=== PATIENT | male | born 1935 | race Caucasian/White ===

== ENCOUNTER 2017-09-09 09:32 | Inpatient (IN) | payer OTHER ==
[2017-09-08 09:50] LABS: BASOPHILS % 0.4 % (0.0-1.0); EOSINOPHILS # (AUTO) 0.2 (0.0-0.4); HEMATOCRIT 38.7 % (38.2-49.6); HEMOGLOBIN 13.5 g/dL (14.0-18.0); LYMPHOCYTES # (AUTO) 1.5 (1.0-3.2); LYMPHOCYTES % 15.5 % (18.0-39.1); MEAN CORPUSCULAR HEMOGLOBIN 38.6 pg (28-32); MEAN CORPUSCULAR HGB CONC 34.9 g/dL (31-35); MEAN CORPUSCULAR VOLUME 110.6 fL (81-99); MONOCYTES # (AUTO) 1.3 (0.2-0.8); MONOCYTES % 13.4 % (4.4-11.3); NEUTROPHILS # (AUTO) 6.5 (2.1-6.9); NEUTROPHILS % 68.6 % (38.7-80.0); PLATELET COUNT 141 x10e3/uL (140-360); RED CELL DISTRIBUTION WIDTH 12.2 % (11.7-14.4)
--- NOTE | 2017-09-08 09:57 | Diagnostic Imaging Report ---
PROCEDURE:CHEST 2 VIEWS TECHNIQUE:PA and lateral chest totaling 3 radiographs INDICATION:Preoperative evaluation for knee surgery COMPARISON:Patients [facility], [place], , CHEST 2 VIEWS, 08/04/2015, 18:59. FINDINGS: The mild basilar interstitial scar predominant at the right lower lobe. Lungs otherwise clear and symmetrically inflated. No pleural effusions. Normal heart size. Mild aortic arch calcification. Normal pulmonary vasculature. Intact skeleton. CONCLUSION: No acute abnormality interval change from July 2015. Dictated by: Ferdinand Quispe M.D. on 09/08/2017 at 9:58 Electronically approved by: Ferdinand Quispe M.D. on 09/08/2017 at 9:58
[~2017-09-09] VITALS: Ht 175.3 cm; Wt 79.8 kg
[~2017-09-09 09:32] MED LIST: ASPIR-LOW81 MG PO; BACITRACIN 50,000 UNIT VIAL ONE; DOCUSATE SODIU100 MG PO; FAMOTIDINE20 MG PO; GABAPENTIN300 MG PO; ISOSORBIDE MONO30 MG PO; MECLIZINE HCL25 MG PO; METOPROLOL TART25 MG PO; MOBIC7.5 MG PO; MUPIROCIN 2% OINT 22 GM TUBE ONE; NIFEDIPINE ER30 M1 PO; PLAVIX75 MG PO; PROZAC20 MG PO; SIMVASTATIN80 MG PO; SUCRALFATE1 GM PO; TRANEXAMIC ACID 1,000 MG/10 ML ML ONE; TRAZODONE HCL100 MG PO; VALACYCLOVIR1000 MG PO
--- OUTSIDE RECORDS SUMMARY | 2017-09-09 09:33 | XMS REPORT ---
Author Author [facility] Address Unknown Phone Unavailable Care Team Providers Care Ware Server Name Role Phone ROOSEVELT SAN Unavailable Unavailable Problems This patient has no known problems. Allergies, Adverse Reactions, Alerts This patient has no known allergies or adverse reactions. Medications This patient has no known medications. Results Test Description Test Time Test Comments Text Results Atomic Results Result Comments CHEST 2 VIEWS [facility] [address] [place], [place] [address] Patient Name: DUTCH THACKER JR MR #: [id number] : 1935 Age/Sex: 82/M Req #: [id number] Adm Physician: Ordered by: ROOSEVELT SAN MD Report #: [id number] Location: OR Room/Bed: Procedure: [id number] DX/CHEST 2 VIEWS Exam Date: 09/08/17 Exam Time: 0920 REPORT STATUS: Signed PROCEDURE: CHEST 2 VIEWS TECHNIQUE: PA and lateral chest totaling 3 radiographs INDICATION: Preoperative evaluation for knee surgery COMPARISON: [facility], DX, CHEST 2 VIEWS, 08/04/2015, 18:59. FINDINGS: The mild basilar interstitial scar predominant at the right lower lobe. Lungs otherwise clear and symmetrically inflated. No pleural effusions. Normal heart size. Mild aortic arch calcification. Normal pulmonary vasculature. Intact skeleton. CONCLUSION: No acute abnormality interval change from July 2015. Dictated by: Jane Quispe M.D. on 09/08/2017 at 9:58 Electronically approved by: Jane Quispe M.D. on 09/08/2017 at 9:58 Dictated By: JANE QUISPE MD 7 Transcribed By: BECKIE on 09/08/17957 COPY TO: ROOSEVELT SAN MD
[2017-09-09] MEDS: SODIUM CHLORIDE 0.9% 1000ML 1,000 ML IV SCH ×2 (10:14→22:16)
[2017-09-09] MEDS ORDERED: HYDROCODONE/APAP 5MG-325MG TAB PO PRN (10:15)
[2017-09-09] MEDS ORDERED: ONDANSETRON HCL INJ 2 MG/ML VIAL IV PRN (10:15)
[2017-09-09] MEDS ORDERED: ACETAMINOPHEN 650 MG SUPP PR PRN (10:15)
[2017-09-09] MEDS ORDERED: ZOLPIDEM TARTRATE 5 MG TAB PO PRN (10:15)
[2017-09-09] MEDS ORDERED: PROMETHAZINE HCL (IM) 25 MG/ML VIAL INJ PRN (10:15)
[2017-09-09] MEDS ORDERED: DIPHENHYDRAMINE HCL INJ 50 MG/ML VIAL IM/IV PRN (10:15)
[2017-09-09] MEDS ORDERED: FENTANYL CITRATE/PF 100MCG/2 ML INJ ONE ×2 (11:21→18:18)
[2017-09-09] MEDS: ACETAMINOPHEN 1000 MG/100 ML IV SCH ×2 (12:00→16:48)
[2017-09-09] MEDS ORDERED: MORPHINE SULFATE 2 MG/ML SYR ONE (13:01)
[2017-09-09 13:25] VITALS: BP 99/56
--- NOTE | 2017-09-09 13:31 | Operative Report ---
DATE OF PROCEDURE: September 09, 2017 GENERAL EDUCATION INSTRUCTOR: Zackary Arreola PA-C The patient was brought to the operating room for induction of anesthesia. Throughout this case, my PA's assistance was necessary for retraction of soft tissue and positioning of the extremity. This allows for efficient and technically successful execution of the operation and is considered medically necessary. PREOPERATIVE DIAGNOSIS: Osteoarthritis right knee. POSTOPERATIVE DIAGNOSIS: Osteoarthritis right knee. PROCEDURE: Right total knee arthroplasty. INDICATIONS: The patient is an 82-year-old gentleman who has severe arthritic changes in his right knee. He has failed conservative management. He would like to proceed with a right total knee replacement. The risks and benefits have been discussed. He has been through extensive preoperative medical clearance. The recovery has been explained. He states he understands and wishes to proceed. DESCRIPTION OF PROCEDURE: The patient was brought to the operating room and placed under general anesthetic. He received a regional block, prophylactic antibiotics and tranexamic acid in the holding area. His right lower extremity was prepped and draped in a sterile manner. A preoperative time out was performed. The extremity was exsanguinated, and a proximal tourniquet was inflated to 300 mmHg. An anterior approach with a medial parapatellar arthrotomy was performed. Clear synovial fluid was removed from the joint. Soft-tissue releases were performed to bring the knee up into flexion with the patella everted. Severe loss of articular cartilage was noted. 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 Marginal osteophytes and meniscal remnants were removed. An extramedullary cutting guide was used to resect the proximal tibia. The tibial baseplate was a size number 7. The central fin punch was impacted. Throughout the case, a [employer] posterior stabilized knee system was used. Attention was then directed towards the distal femur. An intramedullary cutting guide was used to resect the distal femur in 6 degrees of valgus and rotation referenced off of a combination of landmarks including Perry line, the epicondylar axis and the posterior condyles. 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 The femoral component was also a size number 7. The anterior and posterior cuts were made. The notch cut was made. A trial reduction was performed. A 9 mm posterior stabilized implant provided optimal soft-tissue balancing in flexion and extension. The patella was resurfaced with a 35 mm x 9 mm patellar button. The thickness was checked before and after and was right around 24 mm. Patellar tracking was noted to be concentric. The trial implants were removed. The knee was thoroughly irrigated with a Pulsavac. A 100 mL premixed pericapsular ABELARDO injection was placed into the soft tissue. The components were cemented into place using a single mix of Palacos cement pre-loaded with antibiotics. Care was taken to remove extravasated cement. The wound was further irrigated with a shower-tip pulsatile lavage while the cement cured. The arthrotomy was then closed with interrupted number 1 Ethibond. The knee was put through flexion and extension to ensure a secure closure. The skin was closed with subcuticular Vicryl and adilson. A sterile bandage was applied. He was extubated and transported to the recovery room in stable condition. The blood loss was minimal, and all needle and sponge counts were correct. Job#: [id number]
--- NOTE | 2017-09-09 13:36 | Diagnostic Imaging Report ---
PROCEDURE: X-RAY RIGHT KNEE, ONE OR TWO VIEWS COMPARISON: DX, KNEE RIGHT THREE VIEWS, 05/26/2015, 13:02. INDICATIONS:POST OP KNEE RIGHT FINDINGS: See conclusion. CONCLUSION: Status post total right knee replacement with surrounding soft tissue swelling, air and adilson consistent with recent surgery. No evidence of fracture or malalignment. Dictated by: Sabina Tirado M.D. on 09/09/2017 at 13:37 Electronically approved by: Sabina Tirado M.D. on 09/09/2017 at 13:37
[2017-09-09] MEDS: CEFAZOLIN SOD 1 GM VIAL IV SCH ×2 (13:47→22:16)
[2017-09-09] MEDS ORDERED: CEFAZOLIN SOD 1 GM/NS 50ML 50 ML IV SCH (14:00)
[2017-09-09] MEDS: SUCRALFATE 1 GM TAB PO SCH (16:44)
[2017-09-09] MEDS: FLUOXETINE HCL 20 MG CAP PO SCH (16:45)
[2017-09-09] MEDS: ASPIRIN 325 MG TAB PO SCH (16:45)
[2017-09-09] MEDS: GABAPENTIN 300 MG CAP PO SCH (16:45)
[2017-09-09] MEDS: FAMOTIDINE 20 MG TAB PO SCH (16:45)
[2017-09-09] MEDS: CELECOXIB 200 MG CAP PO SCH (16:45)
[2017-09-09 16:52] VITALS: BP 163/82
[2017-09-09] MEDS ORDERED: CELECOXIB 100 MG CAP PO SCH (17:00)
[2017-09-09] MEDS ORDERED: ROPIVACAINE 0.5% 5 MG/ML 30 ML SDV ONE (17:31)
[2017-09-09] MEDS: HYDROCODONE/APAP 7.5MG-325MG 1 EA TAB PO PRN (18:48)
[2017-09-09] MEDS ORDERED: DESFLURANE 240 ML BTL INH ONE (19:32)
[2017-09-09] MEDS ORDERED: DEXAMETHASONE SOD PHOS INJ 4 MG/ML VIAL ONE (19:32)
[2017-09-09] MEDS ORDERED: PROPOFOL IV EMULSION 10 MG/ML 20 ML VIAL ONE (19:32)
[2017-09-09] MEDS ORDERED: LIDOCAINE HCL 2% LOCAL INJ 5 ML SDV VIAL INJ ONE (19:32)
[2017-09-09] MEDS ORDERED: ONDANSETRON HCL INJ 2 MG/ML VIAL ONE (19:32)
[2017-09-09] MEDS ORDERED: ACETAMINOPHEN 1000 MG/100 ML IV ONE (19:32)
[2017-09-09 20:00] VITALS: BP 107/58
[2017-09-09] MEDS ORDERED: NON-FORMULARY MEDICATION (Trazodone Hcl 100 MG) PO SCH (21:00)
[2017-09-09] MEDS: KETOROLAC TROMETHAMINE 30 MG/ML VIAL IV PRN (22:00)
[2017-09-09] MEDS: TRAZODONE HCL 50 MG TAB PO SCH (22:16)
[2017-09-09] MEDS: SIMVASTATIN 80 MG TAB PO SCH (22:16)
[2017-09-09 23:43] VITALS: BP 163/82
[2017-09-10] VITALS (7 sets, daily range): BP systolic 100–180; BP diastolic 54–83
[2017-09-10] MEDS: ACETAMINOPHEN 1000 MG/100 ML IV SCH ×2 (00:30→06:09)
[2017-09-10] MEDS: CEFAZOLIN SOD 1 GM VIAL IV SCH (06:09)
[2017-09-10] MEDS: SODIUM CHLORIDE 0.9% 1000ML 1,000 ML IV SCH (06:10)
[2017-09-10 06:54] LABS: HEMATOCRIT 31.7 % (38.2-49.6); HEMOGLOBIN 11.2 g/dL (14.0-18.0)
[2017-09-10] MEDS: SUCRALFATE 1 GM TAB PO SCH ×2 (07:30→16:30)
[2017-09-10] MEDS: FAMOTIDINE 20 MG TAB PO SCH ×2 (07:30→16:30)
[2017-09-10] MEDS: CELECOXIB 200 MG CAP PO SCH ×2 (08:00→17:00)
[2017-09-10] MEDS: FLUOXETINE HCL 20 MG CAP PO SCH ×2 (09:00→17:00)
[2017-09-10] MEDS: GABAPENTIN 300 MG CAP PO SCH ×2 (09:00→17:00)
[2017-09-10] MEDS: VALACYCLOVIR HCL 500 MG TAB PO SCH (09:00)
[2017-09-10] MEDS: ISOSORBIDE MONONITRATE 30 MG TAB CR PO SCH (09:00)
[2017-09-10] MEDS: METOPROLOL TARTRATE 25 MG TAB PO SCH (09:00)
[2017-09-10] MEDS ORDERED: VALACYCLOVIR HCL 1000 MG PO SCH (09:00)
[2017-09-10] MEDS: ASPIRIN 325 MG TAB PO SCH ×2 (09:00→17:00)
[2017-09-10] MEDS ORDERED: CLOPIDOGREL BISULFATE 75 MG TAB PO SCH (09:00)
[2017-09-10] MEDS: NIFEDIPINE CR 30 MG TAB PO SCH (09:00)
[2017-09-10] MEDS: KETOROLAC TROMETHAMINE 30 MG/ML VIAL IV PRN ×2 (09:57→19:47)
[2017-09-10] MEDS ORDERED: ACETAMINOPHEN 1000 MG/100 ML IV PRN (10:15)
[2017-09-10] MEDS: HYDROCODONE/APAP 7.5MG-325MG 1 EA TAB PO PRN ×3 (17:11→22:03)
[2017-09-10] MEDS: DOCUSATE SODIUM 100 MG CAP PO PRN (19:47)
[2017-09-10] MEDS: SIMVASTATIN 80 MG TAB PO SCH (19:47)
[2017-09-10] MEDS: TRAZODONE HCL 50 MG TAB PO SCH (22:03)
[2017-09-11] VITALS: BP 122/59
[2017-09-11 04:00] VITALS: BP 145/65
[2017-09-11] MEDS: HYDROCODONE/APAP 7.5MG-325MG 1 EA TAB PO PRN ×3 (05:08→20:20)
[2017-09-11 06:57] LABS: BASOPHILS # (AUTO) 0.1 (0.0-0.1); BASOPHILS % 0.5 % (0.0-1.0); EOSINOPHILS # (AUTO) 0.5 (0.0-0.4); EOSINOPHILS % 5.4 % (0.0-6.0); HEMATOCRIT 32.7 % (38.2-49.6); HEMOGLOBIN 11.3 g/dL (14.0-18.0); LYMPHOCYTES # (AUTO) 1.7 (1.0-3.2); LYMPHOCYTES % 18.2 % (18.0-39.1); MEAN CORPUSCULAR HEMOGLOBIN 38.4 pg (28-32); MEAN CORPUSCULAR HGB CONC 34.6 g/dL (31-35); MEAN CORPUSCULAR VOLUME 111.2 fL (81-99); MONOCYTES # (AUTO) 1.3 (0.2-0.8); MONOCYTES % 14.1 % (4.4-11.3); NEUTROPHILS # (AUTO) 5.8 (2.1-6.9); NEUTROPHILS % 61.5 % (38.7-80.0); PLATELET COUNT 101 x10e3/uL (140-360); RED BLOOD COUNT 2.94 x10e6/uL (4.3-5.7); RED CELL DISTRIBUTION WIDTH 12.6 % (11.7-14.4)
[2017-09-11 07:14] LABS: ANION GAP 9.8 mmol/L (8-16); CALCIUM 8.7 mg/dL (8.4-10.2); CREATININE, SERUM 1.93 mg/dL (0.72-1.25); POTASSIUM 5.8 mmol/L (3.5-5.1)
[2017-09-11 07:52] VITALS: BP 137/70
[2017-09-11 07:55] VITALS: BP 137/70
[2017-09-11] MEDS ORDERED: Hydrocodone/Apap 7.5MG-325MG PO (08:32)
[2017-09-11] MEDS ORDERED: Celecoxib PO (08:32)
[2017-09-11] MEDS ORDERED: SOD POLYSTYRENE SULFONATE SUSP 15 GM/60 ML BTL PO ONE (09:00)
[2017-09-11] MEDS: ASPIRIN 325 MG TAB PO SCH ×2 (09:29→16:34)
[2017-09-11] MEDS: SUCRALFATE 1 GM TAB PO SCH ×2 (09:29→16:34)
[2017-09-11] MEDS: FAMOTIDINE 20 MG TAB PO SCH ×2 (09:29→16:34)
[2017-09-11] MEDS: ISOSORBIDE MONONITRATE 30 MG TAB CR PO SCH (09:29)
[2017-09-11] MEDS: GABAPENTIN 300 MG CAP PO SCH ×2 (09:30→16:34)
[2017-09-11] MEDS: FLUOXETINE HCL 20 MG CAP PO SCH ×2 (09:30→16:35)
[2017-09-11] MEDS: VALACYCLOVIR HCL 500 MG TAB PO SCH (09:30)
[2017-09-11] MEDS: METOPROLOL TARTRATE 25 MG TAB PO SCH (09:30)
[2017-09-11] MEDS: NIFEDIPINE CR 30 MG TAB PO SCH (09:30)
[2017-09-11] MEDS ORDERED: DEXTROSE 50% SYRINGE 50 ML IV STA (12:23)
[2017-09-11] MEDS ORDERED: INSULIN REGULAR, HUMAN 100 UNIT/1 ML 3ML VIAL IV ONE (12:30)
[2017-09-11 15:25] LABS: ANION GAP 12.5 mmol/L (8-16); CALCIUM 8.7 mg/dL (8.4-10.2); CREATININE, SERUM 1.88 mg/dL (0.72-1.25); POTASSIUM 4.5 mmol/L (3.5-5.1)
[2017-09-11] MEDS ORDERED: DEXTROSE 50% SYRINGE 50 ML IV ONE (15:58)
[2017-09-11] MEDS: CELECOXIB 200 MG CAP PO SCH (17:00)
[2017-09-11 20:00] VITALS: BP 123/63
[2017-09-11] MEDS: SIMVASTATIN 80 MG TAB PO SCH (20:20)
[2017-09-11 21:24] VITALS: BP 123/63
[2017-09-11] MEDS ORDERED: KETOROLAC TROMETHAMINE 30 MG/ML VIAL IV PRN (22:30)
[2017-09-11] MEDS: TRAZODONE HCL 50 MG TAB PO SCH (23:05)
[2017-09-12] VITALS (8 sets, daily range): BP systolic 118–144; BP diastolic 59–68
[2017-09-12] MEDS: HYDROCODONE/APAP 7.5MG-325MG 1 EA TAB PO PRN ×3 (06:35→17:19)
[2017-09-12] MEDS: GABAPENTIN 300 MG CAP PO SCH ×2 (08:26→17:12)
[2017-09-12] MEDS: SUCRALFATE 1 GM TAB PO SCH ×2 (08:26→17:12)
[2017-09-12] MEDS: ASPIRIN 325 MG TAB PO SCH ×2 (08:26→17:12)
[2017-09-12] MEDS: FAMOTIDINE 20 MG TAB PO SCH ×2 (08:26→17:12)
[2017-09-12] MEDS: FLUOXETINE HCL 20 MG CAP PO SCH ×2 (08:26→17:12)
[2017-09-12] MEDS: METOPROLOL TARTRATE 25 MG TAB PO SCH (08:27)
[2017-09-12] MEDS: VALACYCLOVIR HCL 500 MG TAB PO SCH (08:27)
[2017-09-12] MEDS: NIFEDIPINE CR 30 MG TAB PO SCH (08:27)
[2017-09-12] MEDS: ISOSORBIDE MONONITRATE 30 MG TAB CR PO SCH (08:27)
[2017-09-12] MEDS: SIMVASTATIN 80 MG TAB PO SCH (21:17)
[2017-09-12] MEDS: TRAZODONE HCL 50 MG TAB PO SCH (22:46)
[2017-09-13] VITALS (8 sets, daily range): BP systolic 117–155; BP diastolic 58–80
[2017-09-13] MEDS: HYDROCODONE/APAP 7.5MG-325MG 1 EA TAB PO PRN ×3 (04:36→18:29)
[2017-09-13] MEDS: SUCRALFATE 1 GM TAB PO SCH ×2 (08:46→17:10)
[2017-09-13] MEDS: FAMOTIDINE 20 MG TAB PO SCH ×2 (08:47→17:10)
[2017-09-13] MEDS: VALACYCLOVIR HCL 500 MG TAB PO SCH (08:47)
[2017-09-13] MEDS: ASPIRIN 325 MG TAB PO SCH ×2 (08:47→17:10)
[2017-09-13] MEDS: ISOSORBIDE MONONITRATE 30 MG TAB CR PO SCH (08:47)
[2017-09-13] MEDS: FLUOXETINE HCL 20 MG CAP PO SCH ×2 (08:47→17:10)
[2017-09-13] MEDS: METOPROLOL TARTRATE 25 MG TAB PO SCH (08:47)
[2017-09-13] MEDS: GABAPENTIN 300 MG CAP PO SCH ×2 (08:47→17:10)
[2017-09-13] MEDS: NIFEDIPINE CR 30 MG TAB PO SCH (08:47)
[2017-09-13] MEDS: DOCUSATE SODIUM 100 MG CAP PO PRN (13:36)
[2017-09-13] MEDS: TRAZODONE HCL 50 MG TAB PO SCH (21:00)
[2017-09-13] MEDS: SIMVASTATIN 80 MG TAB PO SCH (22:00)
== END 2017-09-13 22:20 | disposition home or self-care (01) | DRG 470 ==
LOC: OR 09:32 → MED/SURG 11:41
PROVIDERS: ADMIT Specialist; ATTEND Specialist
PROC: 0SUU09Z Supplement Left Knee Joint, Femoral Surface with Liner, Open Approach (ICD-10-PCS; principal; 2017-09-09 08:30)
PROC: 0SRD0JZ Replacement of Left Knee Joint with Synthetic Substitute, Open Approach (ICD-10-PCS; principal; 2017-09-09 08:30)
DX: M17.0 Bilateral primary osteoarthritis of knee (principal); I13.10 Hypertensive heart and chronic kidney disease without heart failure, with stage 1 through stage 4 chronic kidney disease, or unspecified chronic kidney disease; F02.80 Dementia in other diseases classified elsewhere, unspecified severity, without behavioral disturbance, psychotic disturbance, mood disturbance, and anxiety; I25.10 Atherosclerotic heart disease of native coronary artery without angina pectoris; Z95.5 Presence of coronary angioplasty implant and graft; Z86.73 Personal history of transient ischemic attack (TIA), and cerebral infarction without residual deficits; E87.6 Hypokalemia; N18.3 Chronic kidney disease, stage 3 (moderate); F34.1 Dysthymic disorder; N40.1 Benign prostatic hyperplasia with lower urinary tract symptoms
CPT/HCPCS: 36415; 71046; 80048; 82948; 85014; 85018; 85025; 86850; 86900; 86920; 96360; 97139; C1713; J0690; J1100; J1200; J1885; J2001; J2270; J2405; J2795; J7030; J7799

== ENCOUNTER 2019-02-13 17:51 | Observation (INO) | payer OTHER ==
[~2019-02-13] VITALS: Ht 180.3 cm; Wt 78.0 kg
[~2019-02-13 17:51] MED LIST changes: -BACITRACIN 50,000 UNIT VIAL ONE; +Celecoxib PO; +Hydrocodone/Apap 7.5MG-325MG PO; -MUPIROCIN 2% OINT 22 GM TUBE ONE; -TRANEXAMIC ACID 1,000 MG/10 ML ML ONE
[2019-02-13 18:55] LABS: BASOPHILS % 0.4 % (0.0-1.0); EOSINOPHILS # (AUTO) 0.3 (0.0-0.4); EOSINOPHILS % 2.7 % (0.0-6.0); HEMATOCRIT 35.7 % (38.2-49.6); HEMOGLOBIN 12.6 g/dL (14.0-18.0); LYMPHOCYTES # (AUTO) 1.5 (1.0-3.2); LYMPHOCYTES % 14.8 % (18.0-39.1); MEAN CORPUSCULAR HEMOGLOBIN 39.6 pg (28-32); MEAN CORPUSCULAR HGB CONC 35.3 g/dL (31-35); MEAN CORPUSCULAR VOLUME 112.3 fL (81-99); MONOCYTES # (AUTO) 1.1 (0.2-0.8); MONOCYTES % 11.2 % (4.4-11.3); NEUTROPHILS % 70.5 % (38.7-80.0); PLATELET COUNT 127 x10e3/uL (140-360); RED BLOOD COUNT 3.18 x10e6/uL (4.3-5.7); RED CELL DISTRIBUTION WIDTH 12.3 % (11.7-14.4)
[2019-02-13 19:09] LABS: INR 1.03
[2019-02-13 19:10] LABS: PARTIAL THROMBOPLASTIN TIME 27.9 seconds (23.8-35.5)
[2019-02-13 19:15] LABS: ALBUMIN 3.7 g/dL (3.5-5.0); ALBUMIN/GLOBULIN RATIO 1.4 (0.8-2.0); ANION GAP 15.8 mmol/L (8-16); CALCIUM 9.1 mg/dL (8.4-10.2); CREATININE, SERUM 1.75 mg/dL (0.72-1.25); POTASSIUM 4.8 mmol/L (3.5-5.1)
[2019-02-13 19:22] LABS: CREATINE KINASE MB 1.5 ng/mL (0-5.0)
[2019-02-13 19:33] LABS: BILIRUBIN,URINE NEGATIVE (NEGATIVE); CLARITY,URINE CLEAR (CLEAR); COLOR,URINE YELLOW (YELLOW); KETONES,URINE NEGATIVE (NEGATIVE); LEUKOCYTE ESTERASE ,URINE NEGATIVE (NEGATIVE); NITRITE,URINE NEGATIVE (NEGATIVE); PROTEIN,URINE DIPSTICK NEGATIVE (NEGATIVE); URINE UROBILINOGEN 0.2 mg/dL (0.2 - 1)
[2019-02-13 19:43] LABS: BACTERIA,URINE RARE /HPF; EPITHELIAL CELLS,URINE FEW /LPF; RBC,URINE 0-5 /HPF (0-5); WBC,URINE (MAN) 0-5 /HPF (0-5)
[2019-02-13] MEDS ORDERED: PANTOPRAZOLE 40 MG 10ML VIAL IV NR (19:45)
[2019-02-13] MEDS ORDERED: SODIUM CHLORIDE 0.9% 1000ML 1,000 ML IV ONE (19:45)
[2019-02-13 20:19] LABS: EOSINOPHILS % (MANUAL) 1 % (0-7); LYMPHOCYTES % (MANUAL) 13 % (19-48); MONOCYTES % (MANUAL) 13 % (3.4-9.0); NEUTROPHILS % (MANUAL) 73 % (40-74)
[2019-02-13 20:20] LABS: PLATELET ESTIMATE MODERATELY DECREASED; RBC MORPHOLOGY COMMENT NORMAL
[2019-02-13 21:15] VITALS: BP 153/73
[2019-02-13 21:39] VITALS: BP 153/73
--- NOTE | 2019-02-13 21:40 | NUR ---
PT RESTING IN BED WITH NO S/S OF DISTRESS.RESPIRATIONS EVEN/NON LABORED.ADMISSION HX,FAMILY HX AND ASSESSMENT DONE.COMPRESSION STOCKINGS APPLIED PER ORDER.INSTRUCTED PT TO CALL FOR ASSISTANCE NEEDED BY USING CALL LIGHT.PT VERBALIZED UNDERSTANDING.BED IN LOWEST/LOCKED POSITION.BED ALARM ACTIVATED.CALL LIGHT WITHIN EASY REACH.
--- NOTE | 2019-02-13 23:00 | NUR ---
CONSULT TO DR GRAYSON CALLED BY [facility] [facility].
[2019-02-14] VITALS (8 sets, daily range): BP systolic 123–184; BP diastolic 77–89
[2019-02-14 00:43] LABS: HEMATOCRIT 36.2 % (38.2-49.6); HEMOGLOBIN 12.6 g/dL (14.0-18.0)
[2019-02-14 02:47] LABS: CREATINE KINASE MB 1.3 ng/mL (0-5.0)
[2019-02-14 05:09] LABS: HEMATOCRIT 37.6 % (38.2-49.6); HEMOGLOBIN 12.6 g/dL (14.0-18.0)
[2019-02-14 06:42] LABS: ANION GAP 12.8 mmol/L (8-16); CALCIUM 9.5 mg/dL (8.4-10.2); CREATININE, SERUM 1.68 mg/dL (0.72-1.25); POTASSIUM 4.8 mmol/L (3.5-5.1)
--- NOTE | 2019-02-14 07:27 | NUR ---
REPORT GIVEN TO ONCOMING NURSE,WALKING ROUNDS MADE.PT RESTING IN BED WITH NO S/S OF DISTRESS.
[2019-02-14] MEDS: PANTOPRAZOLE 40 MG 10ML VIAL IV SCH (09:02)
--- NOTE | 2019-02-14 09:33 | NUR ---
Patient seen by Dr. Minaya, orders in place for colonoscopy tomorrow. Patient reports last BM was yesterday and had hematochezia, no BM today yet. Will be on clear liquid diet today.
[2019-02-14] MEDS ORDERED: PEG (High)/E-LYTE SOLN 4,000 ML BTL PO NR (10:00)
--- NOTE | 2019-02-14 10:16 | NUR ---
Rounds by attending and verbal orders to d/d tele monitoring.
[2019-02-14] MEDS: SUCRALFATE 1 GM TAB PO SCH ×2 (11:00→16:45)
--- NOTE | 2019-02-14 12:12 | History and Physical ---
PRIMARY CARE PHYSICIAN: Dr. Martinez Streeter. SHAPE HAND: Dr. Jair Minaya. CHIEF COMPLAINT: Rectal bleed. HISTORY: An 83-year-old male with rectal bleed. Bleeding was a few days. The patient had bright red blood per rectum. He has been on aspirin and Plavix. The patient is otherwise stable. Blood count do remain stable. Hemoglobin and hematocrit of 12.6 and 37.6. The patient had no chest pain or shortness of breath. PAST MEDICAL HISTORY: Hypertension dyslipidemia osteoarthritis status post right knee replacement, cataracts, reflux. PAST SURGICAL HISTORY: Cataract surgery and right knee replacement. SOCIAL HISTORY: The patient does not smoke or use alcohol. No regular drug. ALLERGIES: TO MYCIN DRUGS. MEDICATION: The patient is on aspirin, Plavix, Pepcid, Prozac, gabapentin, isosorbide monohydrate, metoprolol tartrate, nifedipine, simvastatin, Carafate, and trazodone. PHYSICAL EXAMINATION: VITAL SIGNS: Temperature is 98, blood pressure 135/89, pulse rate 74, respirations 18. GENERAL: The patient is not in acute distress. HEENT: Normocephalic, atraumatic. Anicteric. NECK: Supple grossly. PULMONARY: Clear. CARDIOVASCULAR: Regular rate and rhythm. ABDOMEN: Soft and unremarkable. EXTREMITIES: No cyanosis or edema NEUROLOGIC: No focal deficit. LABORATORY DATA: Hemoglobin and hematocrit are 12.6 and 35.7 x3 sets. WBC is 9.9, platelets is 127. Chemistry panel, creatinine is 1.68. BUN 24. IMPRESSION: Rectal bleed without significant hemoglobin, hematocrit drop. PLAN: Observation. Colonoscopy. Resume home medications except for aspirin and Plavix. We will monitor the patient closely. MD LANEY Romero/VIOLET /[id number]
[2019-02-14] MEDS: ISOSORBIDE MONONITRATE 30 MG TAB CR PO SCH (12:16)
[2019-02-14] MEDS: NIFEDIPINE CR 30 MG TAB PO SCH (12:17)
[2019-02-14] MEDS: METOPROLOL TARTRATE 25 MG TAB PO SCH (12:17)
--- NOTE | 2019-02-14 12:22 | NUR ---
Noted elevated BP, Medicated with BP meds as per orders.
[2019-02-14] MEDS: ACETAMINOPHEN 325 MG TAB PO PRN (13:27)
--- NOTE | 2019-02-14 16:38 | Consultation ---
DATE OF CONSULTATION: CHIEF COMPLAINT: Rectal bleeding. HISTORY OF PRESENT ILLNESS: Very pleasant 83-year-old man, coming with blood in the stool for 5 days. The patient reports bright red blood per rectum. He denies abdominal pain. He denies melena or hematemesis. PAST MEDICAL HISTORY: Hypertension, reflux, hyperlipidemia, and heart disease. PAST SURGICAL HISTORY: Heart stents and laminectomy. ALLERGIES: NONE. MEDICATIONS: See list. REVIEW OF SYSTEMS: Rectal bleeding, otherwise negative. PHYSICAL EXAMINATION: VITAL SIGNS: Blood pressure 140/80, pulse 70, temperature 98. GENERAL: Well-nourished, white male, in no distress. HEENT: No pallor. ABDOMEN: Soft, nontender. EXTREMITIES: No edema. ASSESSMENT/PLAN: Abnormal rectal bleeding, needs a colonoscopy, we will proceed tomorrow. MD ALICE DesaiO/MODL /[id number]
[2019-02-14] MEDS: GABAPENTIN 300 MG CAP PO SCH (16:45)
[2019-02-14] MEDS: FAMOTIDINE 20 MG TAB PO SCH (16:45)
[2019-02-14] MEDS: FLUOXETINE HCL 20 MG CAP PO SCH (16:45)
[2019-02-14] MEDS: TRAZODONE HCL 50 MG TAB PO SCH (21:43)
[2019-02-15] VITALS (10 sets, daily range): BP systolic 105–141; BP diastolic 65–84
[2019-02-15 05:36] LABS: BASOPHILS % 0.4 % (0.0-1.0); EOSINOPHILS # (AUTO) 0.2 (0.0-0.4); EOSINOPHILS % 2.1 % (0.0-6.0); HEMATOCRIT 36.2 % (38.2-49.6); HEMOGLOBIN 12.5 g/dL (14.0-18.0); LYMPHOCYTES # (AUTO) 1.1 (1.0-3.2); LYMPHOCYTES % 16.1 % (18.0-39.1); MEAN CORPUSCULAR HEMOGLOBIN 38.8 pg (28-32); MEAN CORPUSCULAR HGB CONC 34.5 g/dL (31-35); MEAN CORPUSCULAR VOLUME 112.4 fL (81-99); MONOCYTES # (AUTO) 1.3 (0.2-0.8); MONOCYTES % 18.2 % (4.4-11.3); NEUTROPHILS # (AUTO) 4.4 (2.1-6.9); NEUTROPHILS % 62.6 % (38.7-80.0); PLATELET COUNT 125 x10e3/uL (140-360); RED BLOOD COUNT 3.22 x10e6/uL (4.3-5.7); RED CELL DISTRIBUTION WIDTH 12.7 % (11.7-14.4)
[2019-02-15 06:01] LABS: ANION GAP 15.3 mmol/L (8-16); CALCIUM 9.6 mg/dL (8.4-10.2); CREATININE, SERUM 1.51 mg/dL (0.72-1.25); POTASSIUM 4.3 mmol/L (3.5-5.1)
[2019-02-15] MEDS ORDERED: NIFEDIPINE CR 30 MG TAB PO SCH (09:00)
[2019-02-15] MEDS ORDERED: ISOSORBIDE MONONITRATE 30 MG TAB CR PO SCH (09:00)
[2019-02-15] MEDS ORDERED: METOPROLOL TARTRATE 25 MG TAB PO SCH (09:00)
--- NOTE | 2019-02-15 09:35 | NUR ---
Patient back to the floor s/p colonoscopy. Patient is awake alert and oriented x3. He has no complaints at this time. Explained to patient about being on GI soft diet now and to notify nursing staff if any signs or symptoms of bleeding. Patient verbalized understanding. Encouraged patient to use call light for assistance, call light in reach. bed locked.
[2019-02-15] MEDS: PANTOPRAZOLE 40 MG 10ML VIAL IV SCH (09:51)
[2019-02-15] MEDS: FLUOXETINE HCL 20 MG CAP PO SCH ×2 (09:51→17:27)
[2019-02-15] MEDS: METOPROLOL TARTRATE 25 MG TAB PO SCH (09:51)
[2019-02-15] MEDS: NIFEDIPINE CR 30 MG TAB PO SCH (09:51)
[2019-02-15] MEDS: FAMOTIDINE 20 MG TAB PO SCH ×2 (09:51→17:27)
[2019-02-15] MEDS: ISOSORBIDE MONONITRATE 30 MG TAB CR PO SCH (09:51)
[2019-02-15] MEDS: SUCRALFATE 1 GM TAB PO SCH ×2 (09:51→17:27)
[2019-02-15] MEDS: GABAPENTIN 300 MG CAP PO SCH ×2 (09:51→17:27)
--- NOTE | 2019-02-15 10:36 | NUR ---
Patient stated "Dr. Law told me I could go home today and see him in office". Paged Dr. Law to clarify. I spoke to Dr. Law and he said "let him eat and make sure he doesnt bleed and send him home tomorrow". Will update patient on plan of care
--- NOTE | 2019-02-15 12:08 | NUR ---
Spoke with Dr. Keen. Informed him pt 2 day obs. Per RN, Dr. Law wants to keep overnight and monitor. Hgb has been stable. Dr. Keen states pt can discharge this evening if stable. ELLEN Sanz was informed.
[2019-02-15] MEDS ORDERED: PROPOFOL IV EMULSION 10 MG/ML 20 ML VIAL ONE (14:27)
[2019-02-15] MEDS: ACETAMINOPHEN 325 MG TAB PO PRN (15:02)
--- NOTE | 2019-02-15 15:14 | NUR ---
Nutrition Screen Note RD Recommendation for Physician: - As GI status allows, continue GI Soft diet Plan of Care: RD following, monitoring for tolerance and adequacy Nutrition reason for involvement: Nutrition Risk Trigger- MST Primary Diagnose(s): Lower GIB PMH: HTN, dislipidemia, OA, R TKA, reflux Ht: 71 in Wt: 172.06 lb BMI: 24.0 kg/m2 IBW: [address] Assessment: 02/15: 83 YOM admitted for GIB, s/p colonoscopy this am. Pt sleeping at time of visit, no family present at bedside- unable to obtain nutrition hx at this time. Pt with 90-100% po intake per chart. Pt with multiple BMs yesterday /2 colonoscopy prep. Pt discussed during am rounds. Chart reviewed. Labs and meds reviewed. Will monitor and continue to follow. Current Diet: GI Soft diet Malnutrition Evaluation (02/15/19) The patient does not meet criteria for a specified degree of malnutrition at this time. Will re-evaluate at follow-up as appropriate. Diet Education Needs Assessment: Diet education not indicated. Nutrition Care Level: Low Signed: Ariadna Kerr RD, LD, [facility]
--- NOTE | 2019-02-15 17:09 | NUR ---
Patient denies having bloody stool today. Spoke to Dr. Keen, will keep patient overnight and plan for dc tomorrow.
--- NOTE | 2019-02-15 17:52 | NUR ---
CM called and spoke with Dr. Keen regarding discharge. Informed him that per RN, pt had BM after colonoscopy and had no bleeding, currently tolerating diet. No inpatient criteria. Dr. Keen states he is ok with discharging pt, but Dr. Law wants to keep pt. CM placed call to Dr. Law and left a voicemail for callback. CM also escalated to biomedical engineering professor Dr. Hernandez.
--- NOTE | 2019-02-15 19:56 | NUR ---
Pt does not have IV access. Pt refusing IV at this time due to him "going home tomorrow". Pt is resting comfortably in chair at bedside. Call light is in reach of pt. Will continue to monitor closely.
[2019-02-15] MEDS: TRAZODONE HCL 50 MG TAB PO SCH ×2 (21:06→22:26)
[2019-02-16 03:49] VITALS: BP 121/81
[2019-02-16 07:57] VITALS: BP 121/81
[2019-02-16 08:00] VITALS: BP 133/77
[2019-02-16] MEDS: SUCRALFATE 1 GM TAB PO SCH (08:57)
[2019-02-16] MEDS: ISOSORBIDE MONONITRATE 30 MG TAB CR PO SCH (08:57)
[2019-02-16] MEDS: FAMOTIDINE 20 MG TAB PO SCH (08:57)
[2019-02-16] MEDS: FLUOXETINE HCL 20 MG CAP PO SCH (08:58)
[2019-02-16] MEDS: NIFEDIPINE CR 30 MG TAB PO SCH (08:58)
[2019-02-16] MEDS: GABAPENTIN 300 MG CAP PO SCH (08:58)
[2019-02-16] MEDS: METOPROLOL TARTRATE 25 MG TAB PO SCH (08:58)
--- NOTE | 2019-02-16 10:45 | NUR ---
Discharge instructions and prescription given to the patient. Home medications were discussed with patient along with f/u with PCP next week. Patient verbalized understanding. No IV access.
== END 2019-02-16 10:55 | disposition home or self-care (01) ==
LOC: ER 17:51 → INTOOBSV 19:39 → ERHOLD 19:39 → MED/SURG2 20:09
PROVIDERS: ADMIT Internal Medicine; ATTEND Internal Medicine
DX: K62.5 Hemorrhage of anus and rectum (principal); I10 Essential (primary) hypertension; K21.9 Gastro-esophageal reflux disease without esophagitis; E78.5 Hyperlipidemia, unspecified; Z88.8 Allergy status to other drugs, medicaments and biological substances; Z79.82 Long term (current) use of aspirin; Z96.651 Presence of right artificial knee joint; H26.9 Unspecified cataract; K57.30 Diverticulosis of large intestine without perforation or abscess without bleeding; K64.8 Other hemorrhoids; Z95.5 Presence of coronary angioplasty implant and graft
CPT/HCPCS: 36415 ×3; 45378; 80048 ×2; 80053; 81001; 82550 ×2; 82553 ×2; 83880; 84484 ×2; 85014; 85018; 85025 ×2; 85610; 85730; 86850; 86900; 87086; 93005; 99284; C9113 ×4; G0378 ×4; J2704; J7030